=== PATIENT | male | born 1935 | race Hispanic/Latino ===

== ENCOUNTER → 2018-06-23 | Outpatient (CLI) | payer OTHER ==
[~2018-06-23] MED LIST: ALPR0.5T8 PO; ASPI-1012 PO; CHOL200059 PO; HYDR-2132 PO; MULT-1289 PO; OMEG-108 PO; PRAV20TA4 PO
== END | disposition home or self-care (01) ==
LOC: RAH 09:01
PROVIDERS: ATTEND Family Medicine
DX: M48.061 Spinal stenosis, lumbar region without neurogenic claudication (principal); M89.38 Hypertrophy of bone, other site
CPT/HCPCS: 72148

== ENCOUNTER → 2019-12-12 | Outpatient (CLI) | payer OTHER | END | disposition home or self-care (01) | LOC: RAH 10:00 | PROVIDERS: ATTEND Internal Medicine Gastroenterology | DX: K31.84 Gastroparesis (principal); R14.0 Abdominal distension (gaseous); R11.0 Nausea | CPT/HCPCS: 78264; A9541 ==

== ENCOUNTER 2022-04-03 06:41 | Day surgery (SDC) | payer OTHER ==
[2022-03-21 10:57] LABS: BASOPHILS % (AUTO) 0.6 % (0.0-5.0); LYMPHOCYTES % (AUTO) 21.2 % (21.0-51.0); MEAN CORPUSCULAR HEMOGLOBIN 32.3 pg (27.0-33.0); MEAN CORPUSCULAR HGB CONC 32.1 g/dL (32.0-36.0); MEAN CORPUSCULAR VOLUME 100.5 fL (79-99); MONOCYTES % (AUTO) 9.5 % (3.0-13.0); NEUTROPHILS % (AUTO) 67.2 % (40.0-77.0); PLATELET COUNT (AUTO) 185 K/uL (130-400); RED BLOOD CELL COUNT(AUTO) 3.78 MIL/uL (4.50-6.20); RED CELL DISTRIBUTION WIDTH 14.1 % (11.0-15.5); WHITE BLOOD COUNT (AUTO) 7.9 K/uL (4.8-10.8)
[2022-03-21 11:07] LABS: CREATININE 0.7 mg/dL (0.5-1.5); POTASSIUM 4.4 mmol/L (3.5-5.1)
[2022-03-21 11:08] LABS: INR 1.02 (0.85-1.15); PROTHROMBIN TIME 11.1 SEC (9.6-11.6)
[2022-03-21 11:09] LABS: PARTIAL THROMBOPLASTIN TIME 26.4 SEC (26.3-35.5)
[2022-03-21 11:20] LABS: APPEARANCE,URINE Turbid (CLEAR); BILIRUBIN,URINE Negative (NEGATIVE); COLOR,URINE Yellow (YELLOW); GLUCOSE, URINE (UA) Negative (NEGATIVE); KETONES,URINE Negative (NEGATIVE); LEUKOCYTE ESTERASE ,URINE Trace (NEGATIVE); NITRATE,URINE Positive (NEGATIVE); OCCULT BLOOD,URINE Negative (NEGATIVE); PH,URINE 8.5 (5.0-8.0); PROTEIN,URINE Negative (NEGATIVE)
[2022-03-21 12:34] LABS: AMORPHOUS SEDIMENT,UR Many /LPF (None Seen); BACTERIA,URINE Rare /HPF (None Seen); RBC,URINE 0-1 /HPF (0-1); SQUAMOUS EPITHELIAL CELL,UR Rare /HPF (0-2); TRIPLE PHOSPHATE CRYSTAL,UR Few /LPF (None Seen); WBC,URINE 0-1 /HPF (0-1)
[2022-04-03] VITALS (16 sets, daily range): BP systolic 142–186; BP diastolic 66–91
[~2022-04-03] VITALS: Ht 167.6 cm; Wt 63.8 kg
[~2022-04-03 06:41] MED LIST changes: -ASPI-1012 PO; +CEFTRIAXONE 1G VIAL IVP SCH; -CHOL200059 PO; +CHOL500045 PO; +GENTAMICIN 80 MG/NS 100 ML PB 100 ML IV SCH; -HYDR-2132 PO; +METO5TAB2 PO; +NAPR220T57 PO; -OMEG-108 PO; +SERT-438 PO; +omega xl PO
[2022-04-03] MEDS ORDERED: LACTATED RINGERS 1000ML 1,000 ML IV ONE (07:37)
[2022-04-03] MEDS ORDERED: LIDOCAINE PF 100MG/5ML (2%) SYRINGE 5ML ONE ×2 (08:36→08:38)
[2022-04-03] MEDS ORDERED: PROPOFOL 10 MG/ML 20ML VIAL IV ONE (08:36)
[2022-04-03] MEDS ORDERED: GLYCOPYRROLATE 1 MG/5 ML SYRINGE ONE (09:07)
[2022-04-03] MEDS ORDERED: EPHEDRINE SULFATE 50 MG/ML AMPULE ONE (09:12)
[2022-04-03] MEDS ORDERED: ATROPINE 1MG SYG IVP ONE (09:13)
[2022-04-03] MEDS ORDERED: ONDANSETRON 4MG INJ ONE (09:45)
[2022-04-03] MEDS ORDERED: HYDRALAZINE 20MG/ML VIAL ONE (10:05)
[2022-04-03] MEDS ORDERED: MORPHINE 2 MG SYG ONE ×2 (10:11→10:18)
== END 2022-04-03 12:25 | disposition home or self-care (01) ==
LOC: DAH 06:41
PROVIDERS: ATTEND Urology
DX: N40.1 Benign prostatic hyperplasia with lower urinary tract symptoms (principal); R35.1 Nocturia; N30.20 Other chronic cystitis without hematuria; K21.9 Gastro-esophageal reflux disease without esophagitis; E78.5 Hyperlipidemia, unspecified; F41.9 Anxiety disorder, unspecified; I45.10 Unspecified right bundle-branch block; Z79.899 Other long term (current) drug therapy; Z79.01 Long term (current) use of anticoagulants
CPT/HCPCS: 36415; 52601; 71045; 80048; 81001; 85025; 85610; 85730; 87088; 87635 ×2; 93005; A4215; A4221; A4222; A4223; A4335; A4346; A4354; A4358 ×2; A4554; A4663; A4930; A5113; A6260; A6402; C9803; J0360; J0461; J0696 ×2; J1580 ×2; J2001 ×2; J2405; J2704; J3490 ×2; J7120

== ENCOUNTER 2022-05-24 12:53 | Emergency (ER) | payer OTHER ==
[~2022-05-24] VITALS: Ht 170.2 cm; Wt 63.0 kg
[~2022-05-24 12:53] MED LIST changes: -CEFTRIAXONE 1G VIAL IVP SCH; -GENTAMICIN 80 MG/NS 100 ML PB 100 ML IV SCH
[2022-05-24 13:27] VITALS: BP 178/76
[2022-05-24 13:42] LABS: BASOPHILS % (AUTO) 0.4 % (0.0-5.0); EOSINOPHILS % (AUTO) 1.7 % (0.0-8.0); HEMATOCRIT 31.8 % (42-54); LYMPHOCYTES % (AUTO) 36.6 % (21.0-51.0); MEAN CORPUSCULAR HEMOGLOBIN 32.2 pg (27.0-33.0); MEAN CORPUSCULAR HGB CONC 33.3 g/dL (32.0-36.0); MEAN CORPUSCULAR VOLUME 96.7 fL (79-99); MONOCYTES % (AUTO) 8.7 % (3.0-13.0); NEUTROPHILS % (AUTO) 51.7 % (40.0-77.0); PLATELET COUNT (AUTO) 144 K/uL (130-400); RED BLOOD CELL COUNT(AUTO) 3.29 MIL/uL (4.50-6.20); RED CELL DISTRIBUTION WIDTH 13.2 % (11.0-15.5); WHITE BLOOD COUNT (AUTO) 4.6 K/uL (4.8-10.8)
[2022-05-24 14:27] LABS: CREATININE 0.7 mg/dL (0.5-1.5); POTASSIUM 3.5 mmol/L (3.5-5.1); TOTAL PROTEIN, SERUM 6.8 g/dL (6.0-8.3)
[2022-05-24 14:31] LABS: APPEARANCE,URINE CLOUDY (CLEAR); BILIRUBIN,URINE NEGATIVE (NEGATIVE); COLOR,URINE YELLOW (YELLOW); GLUCOSE, URINE (UA) NEGATIVE (NEGATIVE); KETONES,URINE NEGATIVE (NEGATIVE); LEUKOCYTE ESTERASE ,URINE LARGE (NEGATIVE); NITRATE,URINE NEGATIVE (NEGATIVE); OCCULT BLOOD,URINE MODERATE (NEGATIVE); PH,URINE 7.5 (5.0-8.0); PROTEIN,URINE NEGATIVE (NEGATIVE)
[2022-05-24 14:33] LABS: BACTERIA,URINE Rare /HPF (None Seen); RBC,URINE 0-1 /HPF (0-1); WBC,URINE >100 /HPF (0-1)
[2022-05-24 14:34] LABS: SQUAMOUS EPITHELIAL CELL,UR Rare /HPF (0-2)
[2022-05-24] MEDS: CEFTRIAXONE 2GM VIAL IVP ONE (14:49)
[2022-05-24] MEDS ORDERED: CEPH250C2 PO (16:57)
== END 2022-05-24 17:16 | disposition home or self-care (01) ==
LOC: EDH 12:53
DX: N39.0 Urinary tract infection, site not specified (principal); R53.1 Weakness; I10 Essential (primary) hypertension; E78.5 Hyperlipidemia, unspecified; Z79.899 Other long term (current) drug therapy; Z90.49 Acquired absence of other specified parts of digestive tract; Z98.890 Other specified postprocedural states; W19.XXXA Unspecified fall, initial encounter; Y93.89 Activity, other specified; Y92.89 Other specified places as the place of occurrence of the external cause; Y99.8 Other external cause status
CPT/HCPCS: 99285; 70450; 96374; 84484; 80053; 85025; 87077; 87088; 87186; 81001; 36415; 72125; 93005; J0696

== ENCOUNTER → 2022-06-20 | Outpatient (CLI) | payer OTHER ==
[~2022-06-20] MED LIST changes: +CEPH250C2 PO
== END | disposition home or self-care (01) ==
LOC: RAH 12:00
PROVIDERS: ATTEND Internal Medicine
DX: J84.9 Interstitial pulmonary disease, unspecified (principal); R91.8 Other nonspecific abnormal finding of lung field; I51.7 Cardiomegaly; R94.31 Abnormal electrocardiogram [ECG] [EKG]; I25.10 Atherosclerotic heart disease of native coronary artery without angina pectoris; J47.9 Bronchiectasis, uncomplicated
CPT/HCPCS: 71250

== ENCOUNTER → 2022-06-30 | Outpatient (CLI) | payer OTHER | END | disposition home or self-care (01) | LOC: RAH 13:04 | PROVIDERS: ATTEND Internal Medicine | DX: I08.3 Combined rheumatic disorders of mitral, aortic and tricuspid valves (principal); R01.1 Cardiac murmur, unspecified; R94.31 Abnormal electrocardiogram [ECG] [EKG]; E78.5 Hyperlipidemia, unspecified; I11.9 Hypertensive heart disease without heart failure | CPT/HCPCS: 93306 ==

== ENCOUNTER 2022-09-11 12:18 | Observation (INO) | payer OTHER ==
[~2022-09-11] VITALS: Ht 171.4 cm; Wt 60.2 kg
[2022-09-11 12:50] LABS: BASOPHILS % (AUTO) 0.5 % (0.0-5.0); EOSINOPHILS % (AUTO) 1.1 % (0.0-8.0); HEMATOCRIT 32.4 % (42-54); LYMPHOCYTES % (AUTO) 25.6 % (21.0-51.0); MEAN CORPUSCULAR HEMOGLOBIN 32.4 pg (27.0-33.0); MEAN CORPUSCULAR VOLUME 95.3 fL (79-99); MONOCYTES % (AUTO) 10.2 % (3.0-13.0); NEUTROPHILS % (AUTO) 62.3 % (40.0-77.0); PLATELET COUNT (AUTO) 155 K/uL (130-400); RED CELL DISTRIBUTION WIDTH 13.9 % (11.0-15.5); WHITE BLOOD COUNT (AUTO) 6.2 K/uL (4.8-10.8)
[2022-09-11 13:08] LABS: ALBUMIN 3.6 g/dL (3.5-5.0); CREATININE 0.7 mg/dL (0.5-1.5); MAGNESIUM 2.2 mg/dL (1.80-2.40); POTASSIUM 3.9 mmol/L (3.5-5.1); TOTAL PROTEIN, SERUM 7.4 g/dL (6.0-8.3)
[2022-09-11] MEDS ORDERED: ONDANSETRON 4MG INJ IVP PRN (15:30)
[2022-09-11] MEDS ORDERED: ACETAMINOPHEN 325 MG TAB PO PRN (15:30)
[2022-09-11] MEDS ORDERED: ACETAMINOPHEN 650 MG SUPPOSITORY RC PRN (15:30)
[2022-09-11] MEDS ORDERED: ASPIRIN 325MG TAB PO ONE (15:30)
[2022-09-11] MEDS ORDERED: CLONIDINE HCL 0.1 MG TABLET PO PRN (15:30)
[2022-09-11] MEDS ORDERED: CEFTRIAXONE 2GM VIAL ONE (16:46)
[2022-09-11] MEDS: CEFTRIAXONE 1G VIAL IVP SCH (16:48)
[2022-09-11] MEDS: LACTATED RINGERS 1000ML 1,000 ML IV SCH (16:48)
[2022-09-11] MEDS: SIMVASTATIN 20 MG TABLET PO SCH (20:51)
[2022-09-11] MEDS ORDERED: FAMOTIDINE 20MG TAB PO SCH (21:00)
[2022-09-11 21:59] LABS: APPEARANCE,URINE CLEAR (CLEAR); BILIRUBIN,URINE NEGATIVE (NEGATIVE); COLOR,URINE LIGHT-YELLOW (YELLOW); GLUCOSE, URINE (UA) NEGATIVE (NEGATIVE); KETONES,URINE 5 mg/dL (NEGATIVE); LEUKOCYTE ESTERASE ,URINE NEGATIVE Leu/uL (NEGATIVE); NITRATE,URINE NEGATIVE (NEGATIVE); OCCULT BLOOD,URINE NEGATIVE (NEGATIVE); PH,URINE 7.5 (5.0-8.0); PROTEIN,URINE NEGATIVE (NEGATIVE); UROBILINOGEN,URINE 0.2 mg/dL (0.2-1.0)
[2022-09-11 22:03] LABS: MUCUS,URINE RARE LPF (None Seen); RBC,URINE 0-1 /HPF (0-1)
[2022-09-12 03:56] VITALS: BP 110/68
[2022-09-12 04:19] LABS: BASOPHILS % (AUTO) 0.3 % (0.0-5.0); EOSINOPHILS % (AUTO) 2.5 % (0.0-8.0); HEMATOCRIT 28.7 % (42-54); LYMPHOCYTES % (AUTO) 32.8 % (21.0-51.0); MEAN CORPUSCULAR HEMOGLOBIN 32.1 pg (27.0-33.0); MEAN CORPUSCULAR HGB CONC 34.1 g/dL (32.0-36.0); MEAN CORPUSCULAR VOLUME 94.1 fL (79-99); MONOCYTES % (AUTO) 11.1 % (3.0-13.0); PLATELET COUNT (AUTO) 146 K/uL (130-400); RED BLOOD CELL COUNT(AUTO) 3.05 MIL/uL (4.50-6.20); RED CELL DISTRIBUTION WIDTH 13.9 % (11.0-15.5); WHITE BLOOD COUNT (AUTO) 6.1 K/uL (4.8-10.8)
[2022-09-12 04:36] LABS: B-TYPE NATRIURETIC PEPTIDE 89 pg/mL (0-100)
[2022-09-12 04:42] LABS: CREATININE 0.6 mg/dL (0.5-1.5); MAGNESIUM 1.7 mg/dL (1.80-2.40); PHOSPHORUS 3.1 mg/dL (2.5-4.9); POTASSIUM 3.5 mmol/L (3.5-5.1); THYROID STIMULATING HORMONE 3.2 uIU/mL (0.36-3.74)
[2022-09-12] MEDS ORDERED: AMLO-257 PO (04:50)
[2022-09-12] MEDS ORDERED: IOHEXOL 350 MG/ML 100ML INFUS..BTL IV ONE (06:06)
[2022-09-12] MEDS: LACTATED RINGERS 1000ML 1,000 ML IV SCH ×2 (07:21→18:10)
[2022-09-12 07:43] VITALS: BP 148/97
[2022-09-12] MEDS: ALPRAZOLAM 0.25 MG TABLET PO PRN ×3 (08:07→20:09)
[2022-09-12] MEDS ORDERED: LACTULOSE 20 GM/30 ML UDCUP ONE (09:11)
[2022-09-12] MEDS: ASPIRIN 81MG CHEW TAB PO SCH (09:14)
[2022-09-12] MEDS: ENOXAPARIN SODIUM 40 MG/0.4 ML SYRINGE SQ SCH (09:15)
[2022-09-12 11:08] VITALS: BP 157/66
[2022-09-12] MEDS: CEFTRIAXONE 1G VIAL IVP SCH (12:30)
[2022-09-12] MEDS: CEFTRIAXONE 2GM VIAL IVP SCH (16:26)
[2022-09-12] MEDS: FAMOTIDINE 20MG TAB PO SCH (20:09)
[2022-09-12] MEDS: NAPROXEN 500 MG TABLET PO SCH (20:09)
[2022-09-12] MEDS: SIMVASTATIN 20 MG TABLET PO SCH (20:09)
[2022-09-12] MEDS: OMEGA PO SCH (20:10)
[2022-09-12 20:19] VITALS: BP 191/94
[2022-09-12 23:39] VITALS: BP 97/42
[2022-09-13 03:43] VITALS: BP 147/67
[2022-09-13 04:00] LABS: BASOPHILS % (AUTO) 0.4 % (0.0-5.0); EOSINOPHILS % (AUTO) 0.4 % (0.0-8.0); HEMATOCRIT 31.9 % (42-54); LYMPHOCYTES % (AUTO) 13.2 % (21.0-51.0); MEAN CORPUSCULAR HEMOGLOBIN 32.3 pg (27.0-33.0); MEAN CORPUSCULAR HGB CONC 32.6 g/dL (32.0-36.0); MEAN CORPUSCULAR VOLUME 99.1 fL (79-99); MONOCYTES % (AUTO) 7.5 % (3.0-13.0); NEUTROPHILS % (AUTO) 78.1 % (40.0-77.0); PLATELET COUNT (AUTO) 155 K/uL (130-400); RED BLOOD CELL COUNT(AUTO) 3.22 MIL/uL (4.50-6.20); RED CELL DISTRIBUTION WIDTH 13.8 % (11.0-15.5)
[2022-09-13 04:14] LABS: CREATININE 0.6 mg/dL (0.5-1.5); POTASSIUM 3.6 mmol/L (3.5-5.1)
[2022-09-13 07:00] VITALS: BP 150/73
[2022-09-13] MEDS ORDERED: NON-FORMULARY MEDICATION 1 EACH (Pravastatin Sodium 20 MG) PO SCH (09:00)
[2022-09-13] MEDS: OMEGA PO SCH (09:00)
[2022-09-13] MEDS ORDERED: NON-FORMULARY MEDICATION 1 EACH (Sertraline HCl 25 MG) PO SCH (09:00)
[2022-09-13] MEDS: ALPRAZOLAM 0.25 MG TABLET PO PRN ×2 (10:00→20:15)
[2022-09-13] MEDS: FAMOTIDINE 20MG TAB PO SCH ×2 (10:00→20:15)
[2022-09-13] MEDS: SERTRALINE HCL 50 MG TABLET PO SCH (10:00)
[2022-09-13] MEDS: AMLODIPINE 5 MG TAB PO SCH (10:00)
[2022-09-13] MEDS: NAPROXEN 500 MG TABLET PO SCH ×2 (10:00→20:16)
[2022-09-13] MEDS: ASPIRIN 81MG CHEW TAB PO SCH (10:00)
[2022-09-13] MEDS: ENOXAPARIN SODIUM 40 MG/0.4 ML SYRINGE SQ SCH (10:01)
[2022-09-13] MEDS: MULTIVITAMIN TABLET PO SCH (10:11)
[2022-09-13] MEDS ORDERED: TRAMADOL HCL 50 MG TABLET PO PRN (10:30)
[2022-09-13 11:00] VITALS: BP 158/65
[2022-09-13] MEDS ORDERED: BISACODYL 5 MG TABLET.DR PO PRN (11:30)
[2022-09-13] MEDS: SENNOSIDES 8.6 MG TABLET PO SCH (12:33)
[2022-09-13] MEDS: LIDOCAINE 5% TOPICAL PATCH TP SCH (12:34)
[2022-09-13] MEDS: CEFTRIAXONE 2GM VIAL IVP SCH (14:33)
[2022-09-13 16:00] VITALS: BP 154/77
[2022-09-13] MEDS: SIMVASTATIN 20 MG TABLET PO SCH (20:15)
[2022-09-13] MEDS: POLYETHYLENE GLYCOL 3350 17 GM POWD.PACK PO SCH (20:15)
[2022-09-13] MEDS: FISH OIL 1000 MG/CAP PO SCH (20:16)
[2022-09-13 20:23] VITALS: BP 144/69
[2022-09-14 00:19] VITALS: BP 152/74
[2022-09-14 04:03] VITALS: BP 141/81
[2022-09-14 04:17] LABS: BASOPHILS % (AUTO) 0.6 % (0.0-5.0); EOSINOPHILS % (AUTO) 4.3 % (0.0-8.0); HEMATOCRIT 29.2 % (42-54); LYMPHOCYTES % (AUTO) 35.7 % (21.0-51.0); MEAN CORPUSCULAR HEMOGLOBIN 32.3 pg (27.0-33.0); MEAN CORPUSCULAR HGB CONC 34.2 g/dL (32.0-36.0); MEAN CORPUSCULAR VOLUME 94.2 fL (79-99); MONOCYTES % (AUTO) 11.4 % (3.0-13.0); NEUTROPHILS % (AUTO) 47.7 % (40.0-77.0); PLATELET COUNT (AUTO) 146 K/uL (130-400); RED CELL DISTRIBUTION WIDTH 13.7 % (11.0-15.5); WHITE BLOOD COUNT (AUTO) 6.2 K/uL (4.8-10.8)
[2022-09-14 04:35] LABS: CREATININE 0.6 mg/dL (0.5-1.5); POTASSIUM 3.3 mmol/L (3.5-5.1)
[2022-09-14 08:12] VITALS: BP 150/74
[2022-09-14] MEDS: ENOXAPARIN SODIUM 40 MG/0.4 ML SYRINGE SQ SCH (09:05)
[2022-09-14] MEDS: POLYETHYLENE GLYCOL 3350 17 GM POWD.PACK PO SCH ×2 (09:06→20:47)
[2022-09-14] MEDS: AMLODIPINE 5 MG TAB PO SCH (09:06)
[2022-09-14] MEDS: FISH OIL 1000 MG/CAP PO SCH ×2 (09:06→20:47)
[2022-09-14] MEDS: FAMOTIDINE 20MG TAB PO SCH ×2 (09:06→20:47)
[2022-09-14] MEDS: SENNOSIDES 8.6 MG TABLET PO SCH (09:06)
[2022-09-14] MEDS: ASPIRIN 81MG CHEW TAB PO SCH (09:06)
[2022-09-14] MEDS: LIDOCAINE 5% TOPICAL PATCH TP SCH (09:06)
[2022-09-14] MEDS: MULTIVITAMIN TABLET PO SCH (09:07)
[2022-09-14] MEDS: NAPROXEN 500 MG TABLET PO SCH ×2 (09:07→20:47)
[2022-09-14] MEDS: SERTRALINE HCL 50 MG TABLET PO SCH (09:07)
[2022-09-14] MEDS: ALPRAZOLAM 0.25 MG TABLET PO PRN ×2 (09:35→17:20)
[2022-09-14 12:17] VITALS: BP 153/67
[2022-09-14] MEDS: CEFTRIAXONE 2GM VIAL IVP SCH (14:25)
[2022-09-14 16:00] VITALS: BP 150/74
[2022-09-14] MEDS ORDERED: KCL 20 MEQ ERTAB PO PRN (16:30)
[2022-09-14] MEDS ORDERED: POTASSIUM CHLORIDE 20MEQ/100ML 100 ML IV PRN (16:30)
[2022-09-14] MEDS ORDERED: LIDOCAINE HCL-MPF 1% 2ML VIAL IV PRN (16:30)
[2022-09-14] MEDS ORDERED: POTASSIUM CHLORIDE 10% ELIXIR 20 MEQ/15 ML UDCUP PO PRN (16:30)
[2022-09-14 20:21] VITALS: BP 154/70
[2022-09-14] MEDS: SIMVASTATIN 20 MG TABLET PO SCH (20:47)
[2022-09-15 00:16] VITALS: BP 155/81
[2022-09-15 03:52] LABS: BASOPHILS % (AUTO) 0.6 % (0.0-5.0); EOSINOPHILS % (AUTO) 2.1 % (0.0-8.0); HEMATOCRIT 31.4 % (42-54); LYMPHOCYTES % (AUTO) 32.4 % (21.0-51.0); MEAN CORPUSCULAR HGB CONC 33.4 g/dL (32.0-36.0); MEAN CORPUSCULAR VOLUME 95.7 fL (79-99); MONOCYTES % (AUTO) 10.6 % (3.0-13.0); PLATELET COUNT (AUTO) 151 K/uL (130-400); RED BLOOD CELL COUNT(AUTO) 3.28 MIL/uL (4.50-6.20); RED CELL DISTRIBUTION WIDTH 13.5 % (11.0-15.5); WHITE BLOOD COUNT (AUTO) 6.2 K/uL (4.8-10.8)
[2022-09-15 04:01] LABS: CREATININE 0.6 mg/dL (0.5-1.5); POTASSIUM 3.5 mmol/L (3.5-5.1)
[2022-09-15 04:02] VITALS: BP 154/78
[2022-09-15 04:03] VITALS: BP 145/72
[2022-09-15 08:23] VITALS: BP 152/75
[2022-09-15] MEDS ORDERED: POLY17PO4 PO (08:38)
[2022-09-15] MEDS ORDERED: LIDOP TP (08:38)
[2022-09-15] MEDS: LIDOCAINE 5% TOPICAL PATCH TP SCH (09:00)
[2022-09-15] MEDS: FISH OIL 1000 MG/CAP PO SCH (09:17)
[2022-09-15] MEDS: NAPROXEN 500 MG TABLET PO SCH (09:18)
[2022-09-15] MEDS: SENNOSIDES 8.6 MG TABLET PO SCH (09:18)
[2022-09-15] MEDS: AMLODIPINE 5 MG TAB PO SCH (09:18)
[2022-09-15] MEDS: MULTIVITAMIN TABLET PO SCH (09:19)
[2022-09-15] MEDS: FAMOTIDINE 20MG TAB PO SCH (09:19)
[2022-09-15] MEDS: ASPIRIN 81MG CHEW TAB PO SCH (09:19)
[2022-09-15] MEDS: SERTRALINE HCL 50 MG TABLET PO SCH (09:20)
[2022-09-15] MEDS: POLYETHYLENE GLYCOL 3350 17 GM POWD.PACK PO SCH (09:20)
[2022-09-15] MEDS: ENOXAPARIN SODIUM 40 MG/0.4 ML SYRINGE SQ SCH (09:21)
[2022-09-15] MEDS: ALPRAZOLAM 0.25 MG TABLET PO PRN (09:25)
== END 2022-09-15 10:25 | disposition home or self-care (01) ==
LOC: EDH 12:18 → EDHIP 15:30 → 2DH 09-12 02:55
PROVIDERS: ADMIT Internal Medicine Critical Care Medicine; ATTEND Internal Medicine Critical Care Medicine
DX: R00.1 Bradycardia, unspecified (principal); Z20.822 Contact with and (suspected) exposure to COVID-19; G89.29 Other chronic pain; M54.9 Dorsalgia, unspecified; F41.9 Anxiety disorder, unspecified; I45.10 Unspecified right bundle-branch block; I11.0 Hypertensive heart disease with heart failure; I50.30 Unspecified diastolic (congestive) heart failure; E78.00 Pure hypercholesterolemia, unspecified; M48.061 Spinal stenosis, lumbar region without neurogenic claudication; M48.56XA Collapsed vertebra, not elsewhere classified, lumbar region, initial encounter for fracture; I95.9 Hypotension, unspecified; M19.90 Unspecified osteoarthritis, unspecified site; R55 Syncope and collapse; R64 Cachexia; Z87.891 Personal history of nicotine dependence; Z98.890 Other specified postprocedural states; Z68.20 Body mass index [BMI] 20.0-20.9, adult; Z79.899 Other long term (current) drug therapy; W19.XXXA Unspecified fall, initial encounter; Y92.009 Unspecified place in unspecified non-institutional (private) residence as the place of occurrence of the external cause; Y93.89 Activity, other specified; Y99.8 Other external cause status
CPT/HCPCS: 96374; 96361 ×2; 99285; 82550 ×3; 83735 ×2; 83874 ×3; 84484 ×4; 80053; 82140; 85025 ×5; 87804 ×2; 81001; 36415 ×5; 87635; 71045; 70450; 93970; 93880; 93005; 96376 ×3; 96372 ×4; 84443; 84100; 80048 ×4; 83880; 85378; 82948 ×10; 74018; 71275; 93306; 72148; 97161; 97039 ×2; 97116 ×2; G0378 ×88; J0696 ×5; J1650 ×4; Q9967